=== PATIENT | female | born 1995 | race Caucasian/White ===

== ENCOUNTER 2018-04-01 11:07 | Day surgery (SDC) | payer BC ==
[~2018-04-01 11:07] MED LIST: ACETAMINOPHEN 1,000 MG/100 ML BTL IV ONE; CLINDAMYCIN PHOS/D5W 900MG 900 MG/50 ML BAG IVPB ONE; FAMOTIDINE 20MG TABLET PO ONE; METOCLOPRAMIDE 10 MG TABLET PO ONE; SCOPOLAMINE 1 PATCH TDSY TD ONE
[2018-04-01] MEDS ORDERED: FENTANYL PF 100MCG/2ML VIAL IV ONE (11:08)
[2018-04-01] MEDS ORDERED: ONDANSETRON HCL IV 4 MG/2 ML VIAL IVP ONE (11:08)
[2018-04-01] MEDS ORDERED: DEXAMETHASONE 4 MG/ML 1ML VIAL IVP ONE (11:08)
[2018-04-01] MEDS ORDERED: DIPHENHYDRAMINE HCL 50 MG/ML VIAL IVP ONE (11:08)
[2018-04-01] MEDS ORDERED: MIDAZOLAM HCL 2MG/2ML VIAL IV ONE (11:08)
[2018-04-01] MEDS ORDERED: PROPOFOL 10 MG/ML VIAL IV ONE (11:08)
[2018-04-01] MEDS ORDERED: BUPIVACAINE 0.5% W/EPI MPF 30 ML VIAL IVP ONE (11:08)
[2018-04-01] MEDS ORDERED: LIDOCAINE 2% MDV (20MG/ML) 20ML VIAL IV ONE (11:08)
[2018-04-01] MEDS ORDERED: SEVOFLURANE 250 ML INH ONE (11:08)
[2018-04-01] MEDS ORDERED: MORPHINE SULFATE 4 MG/ML VIAL ONE (13:01)
--- NOTE | 2018-04-02 11:41 | Operative Note ---
DATE OF SURGERY: 04/01/2018 PREOPERATIVE DIAGNOSIS: Internal derangement of right knee. POSTOPERATIVE DIAGNOSIS: Large medial impinging plica with fat pad. OPERATION: Right knee arthroscopy with intraarticular debridement. Staff Surgeon: Siva Lofton MD Anesthesia: General. Preparation: Chloraprep. Individual Considerations: None. PROCEDURE: The patient was taken to the operating room and placed supine on the operating room table. She had a successful induction with general anesthetic. Examination under anesthesia showed normal ligaments. Her right knee was then prepped and draped in the usual fashion. The patient had a superolateral inflow cannula placed. Skin was infiltrated with 0.5% Marcaine with epinephrine prior. The knee was then inflated with normal saline. An inferomedial and an inferolateral lateral portal were made in a similar fashion. The arthroscope was introduced through the inferolateral portal up into the pouch. Patellofemoral joint was basically normal but she had a huge medial plica with impinging fat pad with catching of the patellofemoral compartment almost at only about 10-15 degrees of flexion. A shaver was introduced and this was debrided out. The articular cartilage in the patellofemoral compartment was normal. Medial compartment structures were well seen in prone and found to be normal including medial meniscus and medial articular cartilage. The cruciates were normal and lateral compartment structures were normal. The knee was then irrigated out with saline to remove loose floating debris. Portals were closed with mikey, and 20 mL of 0.25% plain Marcaine along with 4 mg of morphine was injected into the knee. A sterile bulky compressive dressing was applied. The patient tolerated the procedure well. Needle and sponge counts were correct. Estimated blood loss was minimal. She was taken back to recovery in good condition. There were no complications. [facility]
== END 2018-04-01 14:45 | disposition home or self-care (01) ==
LOC: SUR 11:07
PROVIDERS: ATTEND Orthopaedic Surgery
DX: M67.51 Plica syndrome, right knee (principal)
CPT/HCPCS: 81025; J1200; J2270; J2405; J3490